=== PATIENT | male | born 1960 | race Caucasian/White ===

== ENCOUNTER 2020-02-20 01:01 | Observation (INO) | payer OTHER ==
[2020-02-20 01:48] VITALS: BMI 28.1
[2020-02-20] MEDS ORDERED: LOSARTAN POTASSIUM 25 MG TABLET PO ONE (01:50)
[2020-02-20] MEDS ORDERED: LOSARTAN POTASSIUM 50 MG TABLET ONE (02:37)
[2020-02-20 03:11] LABS: BASO % 0.7 % (0-2.0); EOS % 2.8 % (0-4.5); HEMATOCRIT 47.9 % (35.4-49); HEMOGLOBIN 16.1 GM/dL (11.7-16.9); LYMPH % 16.9 % (8-40); MCH 30.5 pg (25.7-33.7); MCHC 33.7 g/dl (32.0-35.9); MEAN CELL VOLUME 90.6 fl (80-96); MEAN PLT VOLUME 10.5 fl (7.5-11.1); MONO % 6.8 % (3.8-10.2); NEUT % 72.8 % (42.8-82.8); PLATELET COUNT 165 K/MM3 (134-434); RBC 5.29 M/mm3 (4.00-5.60); WHITE BLOOD COUNT 8.3 K/mm3 (4.0-10.0)
[2020-02-20 03:19] LABS: INR 1.01 (0.83-1.09); PROTHROMBIN TIME (PATIENT) 12.2 SEC (9.7-13.0)
[2020-02-20 03:33] LABS: POTASSIUM 4.1 mmol/L (3.5-5.1)
[2020-02-20 03:35] LABS: CALCIUM 9.3 mg/dL (8.5-10.1)
[2020-02-20 03:36] LABS: BLOOD UREA NITROGEN 20.9 mg/dL (7-18)
[2020-02-20 03:38] LABS: CREATININE 1.1 mg/dL (0.55-1.3)
[2020-02-20 03:40] LABS: BILIRUBIN,TOTAL 0.3 mg/dL (0.2-1); TOT PROT 7.9 g/dl (6.4-8.2)
[2020-02-20 03:44] LABS: N-TERMINAL BNP 26.8 pg/ml (5-125)
[2020-02-20] MEDS ORDERED: ASPIRIN 81 MG CHEWABLE TABLETS PO ONE (05:38)
[2020-02-20] MEDS ORDERED: ASPIRIN 81 MG CHEWABLE TABLETS ONE ×2 (06:40→09:38)
[2020-02-20 09:15] VITALS: TEMP 98.4
[2020-02-20 09:29] LABS: N-TERMINAL BNP 40.3 pg/ml (5-125)
[2020-02-20] MEDS ORDERED: CHLORTHALIDONE 25 MG TABLET PO SCH (09:30)
[2020-02-20] MEDS ORDERED: VALSARTAN 80 MG TABLET ONE (09:39)
[2020-02-20] MEDS ORDERED: VALSARTAN 160 MG TABLET PO SCH (10:00)
[2020-02-20] MEDS ORDERED: ASPIRIN 81 MG CHEWABLE TABLETS PO SCH (10:00)
[2020-02-20] MEDS ORDERED: ENOXAPARIN NA (PORCINE) 40 MG/0.4 ML DISP.SYRIN SQ SCH (10:00)
[2020-02-20 16:44] VITALS: BP 151/94; PULSE 57
== END 2020-02-20 16:45 | disposition home or self-care (01) ==
LOC: JER 01:01 → JERBED 04:54
PROVIDERS: ADMIT Hospitalist; ATTEND Internal Medicine
DX: I16.0 Hypertensive urgency (principal); I10 Essential (primary) hypertension; E11.9 Type 2 diabetes mellitus without complications; E78.5 Hyperlipidemia, unspecified; Z91.14 Patient's other noncompliance with medication regimen; Z23 Encounter for immunization
CPT/HCPCS: 36415; 71045-TC-FY; 80053; 80061; 82550; 82553; 83036; 83721; 83880; 84443; 84484; 85025; 85379; 85610; 93005; 93010; 93306-TC; 99285-25; C9803; G0378; U0003

== ENCOUNTER 2021-05-20 13:44 | Emergency (ER) | payer OTHER ==
[2021-05-20 14:06] VITALS: BMI 28.3
[2021-05-20] MEDS ORDERED: ACETAMINOPHEN 1000 MG/100 ML BAG IVPB ONE (14:25)
[2021-05-20] MEDS ORDERED: PANTOPRAZOLE SODIUM 40 MG VIAL IVPB ONE (14:25)
[2021-05-20] MEDS ORDERED: SODIUM CHLORIDE 1,000 ML IV STA (14:25)
[2021-05-20] MEDS ORDERED: ACETAMINOPHEN INJECTION 100 ML IVPB ONE (15:21)
[2021-05-20] MEDS ORDERED: PANTOPRAZOLE SODIUM 40 MG VIAL ONE (15:21)
[2021-05-20] MEDS ORDERED: LOSARTAN POTASSIUM 25 MG TABLET PO ONE (15:26)
[2021-05-20 15:40] LABS: BASO % 0.3 % (0-2.0); EOS % 0.3 % (0-4.5); HEMATOCRIT 46.2 % (35.4-49); HEMOGLOBIN 15.7 GM/dL (11.7-16.9); LYMPH % 3.5 % (8-40); MCH 30.2 pg (25.7-33.7); MCHC 34.1 g/dl (32.0-35.9); MEAN CELL VOLUME 88.6 fl (80-96); MONO % 6.1 % (3.8-10.2); NEUT % 89.8 % (42.8-82.8); PLATELET COUNT 127 10^3/uL (134-434); RBC 5.21 M/mm3 (4.00-5.60); WHITE BLOOD COUNT 11.7 K/mm3 (4.0-10.0)
[2021-05-20 15:46] LABS: INR 1.23 (0.83-1.09); PROTHROMBIN TIME (PATIENT) 14.2 SEC (9.7-13.0)
[2021-05-20 15:48] LABS: ACTIVATED PTT 29.2 SECONDS (25.2-36.5)
[2021-05-20 15:58] LABS: EPI CELLS 3 /uL (0-25.1); HYALINE CASTS 3 /uL (0-3.1); URINE APPEARANCE CLEAR; URINE BACTERIA 1 /uL (0-1359); URINE BILIRUBIN 2+ (NEGATIVE); URINE COLOR DK YELLOW; URINE GLUCOSE (UA) NEGATIVE (NEGATIVE); URINE KETONE TRACE (NEGATIVE); URINE LEUK ESTERASE TRACE (NEGATIVE); URINE NITRITE NEGATIVE (NEGATIVE); URINE PROTEIN TRACE (NEGATIVE); URINE RBC 11 /uL (0-23.9); URINE WBC 6 /uL (0-25.8)
[2021-05-20 16:09] LABS: BLOOD UREA NITROGEN 17.9 mg/dL (7-18); CALCIUM 9.2 mg/dL (8.5-10.1)
[2021-05-20 16:10] LABS: ALBUMIN 3.9 g/dl (3.4-5.0)
[2021-05-20 16:11] LABS: MAGNESIUM 2.2 mg/dL (1.8-2.4)
[2021-05-20 16:13] LABS: CREATININE 1.4 mg/dL (0.55-1.3); PHOSPHOROUS 1.7 mg/dL (2.5-4.9)
[2021-05-20 16:14] LABS: BILIRUBIN,TOTAL 4.6 mg/dL (0.2-1)
[2021-05-20 16:15] LABS: TOT PROT 7.5 g/dl (6.4-8.2)
[2021-05-20] MEDS ORDERED: LOSARTAN POTASSIUM 50 MG TABLET ONE (16:55)
[2021-05-20] MEDS ORDERED: CEFTRIAXONE 1,000 MG in DEXTROSE 5%-WATER - 50 ML IVPB ONE (16:56)
[2021-05-20] MEDS ORDERED: CEFTRIAXONE 1 GM/50 ML BAG ONE (18:10)
[2021-05-20 23:21] VITALS: BP 191/97; PULSE 88; TEMP 98.1
[2021-05-21 10:07] LABS: SARS-CoV-2 NAA Not Detected (Not Detected)
== END 2021-05-20 23:23 | disposition short-term general hospital (02) ==
LOC: JER 13:44
PROC: 3E033GC Introduction of Other Therapeutic Substance into Peripheral Vein, Percutaneous Approach (ICD-10-PCS; principal; 2021-05-20)
DX: K80.42 Calculus of bile duct with acute cholecystitis without obstruction (principal)
CPT/HCPCS: 36415; 71046-TC-FY; 76705-TC; 80053; 81003; 83690; 83735; 84100; 84484; 85025; 85610; 85730; 93005; 93010; 99285-25; C9803; U0003; U0005

== ENCOUNTER 2022-02-28 18:25 | Inpatient (IN) | payer OTHER ==
[2022-02-28 18:45] VITALS: BMI 29.6
[2022-02-28] MEDS ORDERED: NITROGLYCERIN SUBLINGUAL 1/150 0.4 MG TAB SL ONE (19:57)
[2022-02-28] MEDS ORDERED: NITROGLYCERIN SUBLINGUAL 1/150 0.4 MG TAB ONE (20:03)
[2022-02-28] MEDS ORDERED: LABETALOL HCL 5 MG/1 ML (100MG/20 ML VIAL) IVPUSH ONE (20:26)
[2022-02-28] MEDS ORDERED: LABETALOL HCL 5 MG/1 ML (100MG/20 ML VIAL) ONE (20:38)
[2022-02-28 21:08] LABS: BASO % 0.7 % (0-2.0); EOS % 3.6 % (0-4.5); HEMATOCRIT 47.6 % (35.4-49); HEMOGLOBIN 15.6 GM/dL (11.7-16.9); LYMPH % 22.3 % (8-40); MCH 29.4 pg (25.7-33.7); MCHC 32.8 g/dl (32.0-35.9); MEAN CELL VOLUME 89.4 fl (80-96); MONO % 6.6 % (3.8-10.2); NEUT % 66.8 % (42.8-82.8); PLATELET COUNT 172 10^3/uL (134-434); RBC 5.32 M/mm3 (4.00-5.60); RDW 14.1 % (11.9-15.9); WHITE BLOOD COUNT 8.8 K/mm3 (4.0-10.0)
[2022-02-28 21:40] LABS: CHLORIDE 106 mmol/L (98-107); SODIUM 142 mmol/L (136-145)
[2022-02-28 21:44] LABS: ALBUMIN 3.7 g/dl (3.4-5.0); ANION GAP 8 MMOL/L (8-16); BLOOD UREA NITROGEN 21.8 mg/dL (7-18); CALCIUM 9.5 mg/dL (8.5-10.1); CO2 27 mmol/L (21-32)
[2022-02-28 21:45] LABS: GLUCOSE,RANDOM 97 mg/dL (74-106)
[2022-02-28 21:48] LABS: CREATININE 1.4 mg/dL (0.55-1.3); SGOT/AST 30 U/L (15-37); SGPT/ALT 33 U/L (13-61)
[2022-02-28 21:49] LABS: BILIRUBIN,TOTAL 0.5 mg/dL (0.2-1); TOT PROT 7.5 g/dl (6.4-8.2)
[2022-02-28 21:50] LABS: ALK PHOS 59 U/L (45-117)
[2022-03-01 07:51] LABS: BASO % 0.7 % (0-2.0); EOS % 4.2 % (0-4.5); HEMATOCRIT 45.2 % (35.4-49); HEMOGLOBIN 14.8 GM/dL (11.7-16.9); LYMPH % 25.4 % (8-40); MCH 29.4 pg (25.7-33.7); MCHC 32.8 g/dl (32.0-35.9); MEAN CELL VOLUME 89.5 fl (80-96); MEAN PLT VOLUME 10.2 fl (7.5-11.1); MONO % 7.5 % (3.8-10.2); NEUT % 62.2 % (42.8-82.8); PLATELET COUNT 173 10^3/uL (134-434); RBC 5.05 M/mm3 (4.00-5.60); RDW 14.2 % (11.9-15.9); WHITE BLOOD COUNT 7.4 K/mm3 (4.0-10.0)
[2022-03-01 08:33] LABS: ALBUMIN 3.4 g/dl (3.4-5.0); BLOOD UREA NITROGEN 20.6 mg/dL (7-18); CALCIUM 9.2 mg/dL (8.5-10.1)
[2022-03-01 08:35] LABS: CREATININE 1.2 mg/dL (0.55-1.3)
[2022-03-01 08:36] LABS: PHOSPHOROUS 3.1 mg/dL (2.5-4.9)
[2022-03-01 08:37] LABS: BILIRUBIN,TOTAL 0.6 mg/dL (0.2-1); TOT PROT 6.7 g/dl (6.4-8.2)
[2022-03-01] MEDS ORDERED: amLODIPine BESYLATE 5 MG TABLET (FP) PO SCH (09:00)
[2022-03-01] MEDS ORDERED: LOSARTAN POTASSIUM 50 MG TABLET PO SCH (10:00)
[2022-03-01] MEDS ORDERED: HYDROCHLOROTHIAZIDE 25 MG TABLET (FP) PO SCH (10:00)
[2022-03-01] MEDS ORDERED: FLU VACC QS2022-23(6MOS UP)/PF 60 MCG/0.5 ML SYRINGE IM ONE (10:00)
[2022-03-01] MEDS ORDERED: ENOXAPARIN NA (PORCINE) 40 MG/0.4 ML DISP.SYRIN SQ SCH (10:00)
[2022-03-01] MEDS ORDERED: metoPROLOL SUCCINATE 25 MG TAB.SR.24H (FP) PO SCH (11:30)
[2022-03-01 12:06] VITALS: RESP 16; TEMP 98.4
[2022-03-01 12:11] VITALS: BP 148/108; PULSE 53
[2022-03-01] MEDS ORDERED: PNEUMOCOCCAL 23 VACCINE 0.5 ML VIAL IM ONE (13:12)
[2022-03-01] MEDS ORDERED: PNEUMOC 20-VAL CONJ-DIP CRM/PF 0.5 ML SYRINGE IM ONE (14:00)
[2022-03-01] MEDS ORDERED: ATORVASTATIN CA 10 MG TABLET (FP) PO SCH (22:00)
== END 2022-03-01 14:51 | disposition home or self-care (01) | DRG 199 ==
LOC: JER 18:25 → JERBED 22:34 → J4W 03-01 04:25
PROVIDERS: ADMIT Family Medicine; ATTEND Nurse Practitioner Acute Care
DX: I16.1 Hypertensive emergency (principal); I24.8 Other forms of acute ischemic heart disease; R07.89 Other chest pain; R51.9 Headache, unspecified; E78.00 Pure hypercholesterolemia, unspecified
CPT/HCPCS: 0241U-QW; 36415; 70450-TC; 71045-TC-FY; 80053; 82550; 83735; 84100; 84443; 84484; 85025; 93005; 93010; 99285-25; G0008; Q2036